=== PATIENT | male | born 1955 | race Caucasian/White ===

== ENCOUNTER 2023-01-05 13:32 | Outpatient (CLI) | payer MEDICARE, MEDICAID, SELFPAY ==
--- NOTE | 2023-01-05 13:54 | XRR_ITS ---
PROCEDURE INFORMATION: Exam: XR Right Shoulder Exam date and time: 01/05/2023 2:12 PM Age: 67 years old Clinical indication: Pain; Shoulder; Bilateral; Additional info: Pain in R shoulder TECHNIQUE: Imaging protocol: Radiologic exam of the right shoulder. 2image(s) are provided. Views: 2 or more views. COMPARISON: 1. No relevant prior studies available of the right shoulder. 2. CR XR shoulder LT min 2V* [id number] 01/05/2023 2:12 PM FINDINGS: Bones/joints: Osseous alignment is maintained.No displaced fracture or dislocation is appreciated. There is some chronic degeneration of the superolateral aspect of the humeral head with some sclerosis and subchondral cystic related change. There appears to be some marginal spurring and narrowing of the glenohumeral junction. There is slight hypertrophy and spurring of the acromioclavicular junction along with the subacromial margin. Pleural space: No pneumothorax or lobar type consolidation is appreciated. There does however appear to be some ground-glass subcentimeter nodularity although incompletely included for example at the right midlung zone. Soft tissues: No radiopaque foreign body or subcutaneous emphysema is appreciated. XR/XR shoulder RT min 2V* [id number] IMPRESSION: 1. 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 2. There is some questionable ground-glass centrilobular nodularity about the subpleural right midlung zone although incompletely included. Two-view chest radiograph is recommended.
--- NOTE | 2023-01-05 13:54 | XRR_ITS ---
PROCEDURE INFORMATION: Exam: XR Left Shoulder Exam date and time: 01/05/2023 2:12 PM Age: 67 years old Clinical indication: Pain; Shoulder; Bilateral; Additional info: Pain in left shoulder.No history of trauma or recent surgery is provided. TECHNIQUE: Imaging protocol: Radiologic exam of the left shoulder. 2image(s) are provided. Views: 2 or more views. COMPARISON: 1. No relevant prior studies available of the left shoulder. 2. CR XR shoulder RT min 2V* [id number] 01/05/2023 2:12 PM FINDINGS: Bones/joints: Osseous alignment is maintained.No displaced fracture or dislocation is appreciated. There is some mild degeneration with spurring and narrowing of the glenohumeral junction. There is mild degeneration of the superolateral aspect of the humeral head as well as at the acromioclavicular junction. There is some subtle undulation suggestive of chronic rib deformities laterally. Pleural space: No pneumothorax or lobar type consolidation is appreciated. Soft tissues: No radiopaque foreign body or subcutaneous emphysema is appreciated. XR/XR shoulder LT min 2V* [id number] IMPRESSION: Osseous alignment is maintained with some chronic degeneration overall most pronounced of the glenohumeral junction with inferior glenohumeral spurring and narrowing demonstrated.No fracture or dislocation is appreciated.
== END 2023-01-05 13:33 | disposition home or self-care (01) ==
PROVIDERS: PCP Family Medicine; Visit Provider Nurse Practitioner
DX: M19.012 Primary osteoarthritis, left shoulder (principal); M19.011 Primary osteoarthritis, right shoulder; R91.8 Other nonspecific abnormal finding of lung field
CPT/HCPCS: 73030

== ENCOUNTER 2023-02-03 12:17 | Outpatient (CLI) | payer MEDICARE, MEDICAID, SELFPAY ==
--- NOTE | 2023-02-03 12:30 | XR_ITS ---
WS: [id number] XR chest 2V* [id number] REASON FOR EXAM: GROUND GLASS APPEARANCE ON PREVIOUS SHOULDER XRAY FINDINGS: Moderate tortuosity of the thoracic aorta. The heart is at the upper limits of normal in size. Calcified granulomatous disease in both hemithoraces. 4 mm nodule in the right lower lung field on the PA view which corresponds to the abnormality describ ed right shoulder examination. Other smaller nodular densities are seen in the left upper lung.. Bony thorax is intact with no significant focal abnormality. IMPRESSION: Several sub-5 mm nodules. If the patient is a smoker a screening CT scan the chest would be appropria te to establish a baseline.
== END 2023-02-03 12:18 | disposition home or self-care (01) ==
PROVIDERS: Visit Provider Family Medicine
DX: S40.912A Unspecified superficial injury of left shoulder, initial encounter (principal); X58.XXXA Exposure to other specified factors, initial encounter; R91.8 Other nonspecific abnormal finding of lung field
CPT/HCPCS: 71046

== ENCOUNTER 2023-03-03 10:21 | Outpatient (CLI) | payer MEDICARE, MEDICAID, SELFPAY ==
--- NOTE | 2023-03-03 10:34 | CT_ITS ---
WS: [id number] CT chest w con* [id number] HISTORY: PULMONARY NODULE TECHNIQUE: Axial imaging performed through the thorax. Coronal and sagittal reformats are submitted. All CT scans at [facility] use at least one of these dose optimization techniques: automated exposure control; mA and/or kV adjustment per patient size (includes targeted exams where dose is mat ched to clinical indication); or iterative reconstruction. CONTRAST: Omnipaque 350; 100 mL IV. DLP: 639.07 mGy.cm COMPARISON: 02/03/2023 Lungs and central airway: Noncalcified 3 mm nodule subpleural RIGHT middle lobe. Corresponds to one o f the nodules on the recent chest radiograph. There is an additional calcified granuloma in the RIGHT middle lobe. No mass. No pneumonia. Mild elevation of the LEFT hemidiaphragm. Pleura: Normal. No pleural effusion. Heart and pericardium: Normal size heart with no pericardial effusion. Mediastinum and valerie: Small mediastinal and hilar lymph nodes. No adenopathy. Vessels: Normal size aortic and pulmonary artery. No coronary artery calcifications. Chest wall and lower neck: Asymmetric soft tissue thickening and masslike nodule in the LEFT chest wa ll associated with the breast. Slightly spiculated nodule measures 18 x 22 mm. Upper abdomen: Hepatic steatosis and mild hepatic enlargement. There are several small lymph nodes ne ar the fundus of the stomach measuring up to 10 mm. Smaller lymph nodes along the celiac axis and por ta hepatis. Osseous structures: No destructive process. IMPRESSION: 1. Noncalcified 3 mm RIGHT middle lobe subpleural nodule. There is an additional RIGHT middle lobe ca lcified granuloma. No mass or pneumonia. Consider 12-month follow-up chest CT evaluation. 2. No mediastinal or hilar adenopathy. 3. There is small, probably reactive lymph nodes near the GE junction, celiac axis and verónica hepatis. 4. LEFT chest wall mass closely associated with the breast tissue. Gynecomastia is likely. Recommend ultrasound evaluation to exclude neoplasm.
[2023-03-03] MEDS: iohexol 350 mg/mL 500 mL Btl (per mL) IV (11:11)
[2023-03-03 11:12] LABS: Blood Urea Nitrogen 14 mg/dL (8-23); Glomerular Filtration Rate 84.7 mL/min (90-130)
== END 2023-03-03 10:22 | disposition home or self-care (01) ==
LOC: RAD 10:24
PROVIDERS: PCP Family Medicine; Visit Provider Family Medicine
DX: R91.1 Solitary pulmonary nodule (principal); J84.10 Pulmonary fibrosis, unspecified; N63.20 Unspecified lump in the left breast, unspecified quadrant; Z01.812 Encounter for preprocedural laboratory examination
CPT/HCPCS: 71260; 82565; 84520; Q9967

== ENCOUNTER 2023-03-08 20:00 | Outpatient (CLI) | payer MEDICARE, MEDICAID, SELFPAY | END 2023-03-08 20:01 | disposition home or self-care (01) | LOC: SLEEP 03-09 06:06 | PROVIDERS: PCP Family Medicine; Visit Provider Anesthesiology Pain Medicine | DX: G47.33 Obstructive sleep apnea (adult) (pediatric) (principal); G47.10 Hypersomnia, unspecified; R06.83 Snoring; R53.83 Other fatigue | CPT/HCPCS: 95810 ==

== ENCOUNTER 2023-07-26 20:00 | Outpatient (CLI) | payer MEDICARE, MEDICAID, SELFPAY | END 2023-07-26 20:01 | disposition home or self-care (01) | LOC: SLEEP 07-27 06:03 | PROVIDERS: PCP Family Medicine; Visit Provider Anesthesiology Pain Medicine | DX: G47.33 Obstructive sleep apnea (adult) (pediatric) (principal) | CPT/HCPCS: 95811 ==